=== PATIENT | female | born 1970 | race Caucasian/White ===

== ENCOUNTER → 2019-03-06 | Outpatient (CLI) | payer BC, OTHER ==
--- NOTE | 2019-03-06 18:53 | RADIOLOGY REPORT (SQ) ---
EXAM DESCRIPTION: U/S NON OB PEL W/DOPPLER COMPLETED DATE/TIME: 03/06/2019 5:29 pm REASON FOR STUDY: R10.2 PELVIC AND PERINEAL PAIN R10.2 PELVIC AND PERINEAL PAIN LMP 02/19/2019 COMPARISON: None. TECHNIQUE: Dynamic and static grayscale images acquired of the pelvis via transabdominal approach an d recorded on PACS. Additional selected color Doppler and spectral images recorded. LIMITATIONS: None. FINDINGS: UTERUS: Contour normal. No mass. ENDOMETRIAL STRIPE: No focal or generalized thickening. No masses. CERVIX: 2.7 cm. No nabothian cysts. RIGHT OVARY AND DOPPLER: Normal size. No worrisome masses. Normal arterial vascular flow without evid ence for torsion. LEFT OVARY AND DOPPLER: Normal size. No worrisome masses. Normal arterial vascular flow without evide nce for torsion. FREE FLUID: None noted. OTHER: No other significant finding. MEASUREMENTS: UTERUS: 9.8 x 4.6 x 4.3 cm. ENDOMETRIAL STRIPE: 9 mm. RIGHT OVARY: 3.2 x 1.9 x 1.9 cm. LEFT OVARY: 3.6 x 3.9 x 2.7 cm. IMPRESSION: NORMAL PELVIC ULTRASOUND BY TRANSABDOMINAL TECHNIQUE. TECHNICAL DOCUMENTATION: JOB ID: [id number] [employer]- All Rights Reserved Rev-04/05 Reading location - IP/workstation name: [email or web address]
== END ==
LOC: RAD 16:30
PROVIDERS: ATTEND Nurse Practitioner Family
DX: R10.2 Pelvic and perineal pain (principal)
CPT/HCPCS: 76856; 93976

== ENCOUNTER 2019-07-17 11:13 | Emergency (ER) | payer OTHER ==
[2019-07-17 11:28] LABS: ABSOLUTE EOSINOPHILS # (AUTO) 0.1 10^3/uL (0.0-0.6); ABSOLUTE LYMPHOCYTES (AUTO) 1.2 10^3/uL (0.5-4.7); ABSOLUTE MONOCYTES (AUTO) 0.6 10^3/uL (0.1-1.4); ABSOLUTE NEUT (AUTO) 6.1 10^3/uL (1.7-8.2); BASOPHILS % (AUTO) 0.4 % (0-2); EOSINOPHILS % (AUTO) 0.7 % (0-6); HEMATOCRIT 39.2 % (36.0-47.0); HEMOGLOBIN 13.3 g/dL (12.0-15.5); LYMPHOCYTES % (AUTO) 15.5 % (13-45); MEAN CORPUSCULAR HEMOGLOBIN 27.8 pg (27.0-33.4); MEAN CORPUSCULAR VOLUME 82 fl (80-97); MONOCYTES % (AUTO) 7.5 % (3-13); PLATELET COUNT 142 10^3/uL (150-450); RED BLOOD COUNT 4.79 10^6/uL (3.72-5.28); RED CELL DISTRIBUTION WIDTH 15.1 % (11.5-14.0); SEGMENTED NEUTROPHILS % (AUTO) 75.9 % (42-78); TOTAL CELLS COUNTED % (AUTO) 100 %
[2019-07-17 11:53] LABS: ALBUMIN 3.9 g/dL (3.5-5.0); ALKALINE PHOSPHATASE 58 U/L (38-126); ANION GAP 11 (5-19); ASPARTATE AMINO TRANSFERASE 21 U/L (14-36); BILIRUBIN,DIRECT 0.3 mg/dL (0.0-0.4); BILIRUBIN,TOTAL 0.6 mg/dL (0.2-1.3); BLOOD UREA NITROGEN 14 mg/dL (7-20); CALCIUM 8.9 mg/dL (8.4-10.2); CARBON DIOXIDE 24 mmol/L (22-30); CHLORIDE 102 mmol/L (98-107); CREATINE KINASE 87 U/L (30-135); GLUCOSE 179 mg/dL (75-110); POTASSIUM 3.4 mmol/L (3.6-5.0); TOTAL PROTEIN 6.7 g/dL (6.3-8.2)
--- NOTE | 2019-07-17 12:00 | ER Document Report ---
ED Medical Screen (RME) - General Chief Complaint: Nausea/Vomiting Stated Complaint: DIZZINESS Time Seen by Provider: 07/17/19 11:53 Primary Care Provider: AHMET NAZARIO NP [Primary Care Provider] - Follow up as needed Mode of Arrival: Ambulatory Information source: Patient Notes: Patient presents with 2-day history of nausea vomiting diarrhea. Patient complains of dizziness and episode of diaphoresis today. Patient does complain of low back pain as well. Patient complains of generalized lower abdominal cramping. Patient denies any blood in the stool. Patient does report an episode in which she felt dizzy and ended up having an episode of stool incontinence. I have greeted and performed a rapid initial assessment of this patient. A comprehensive ED assessment and evaluation of the patient, analysis of test results and completion of the medical decision making process will be conducted by additional ED providers. TRAVEL OUTSIDE OF THE [place] IN LAST 30 DAYS: No - Related Data Allergies/Adverse Reactions: No Known Allergies Allergy (Unverified 10/20/15 18:11) Past Medical History - Past Medical History Cardiac Medical History: Reports: Hx Congestive Heart Failure, Hx Hypertension Pulmonary Medical History: Reports: Hx Bronchitis Neurological Medical History: Reports: Hx Migraine GI Medical History: Reports: Hx Gastroesophageal Reflux Disease, Hx Hiatal Hernia Musculoskeltal Medical History: Reports Hx Arthritis, Reports Hx Musculoskeletal Deformity, Reports Hx Musculoskeletal Trauma Psychiatric Medical History: Reports: Hx Anxiety Traumatic Medical History: Reports: Hx Fractures Past Surgical History: Reports: Hx Cholecystectomy, Hx Nose Surgery, Hx Oral Surgery, 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 Physical Exam - Vital signs Vitals: Temp Pulse Resp BP 98.1 F 82 20 118/71 07/17/19 11:24 07/17/19 11:24 07/17/19 11:24 07/17/19 11:24 - Abdominal Tenderness: Tender - Generalized lower abdominal tenderness Course - Vital Signs Vital signs: Temp Pulse Resp BP Pulse Ox 98.1 F 82 20 118/71 07/17/19 11:24 07/17/19 11:24 07/17/19 11:24 07/17/19 11:24 - Laboratory Result Diagrams: 07/17/19 11:20 07/17/19 11:20 Laboratory results interpreted by me: 07/17/19 07/17/19 11:20 11:20 RDW 15.1 H Plt Count 142 L Sodium 136.9 L Potassium 3.4 L Glucose 179 H Doctor's Discharge - Discharge Referrals: AHMET NAZARIO MACH[employer] MEASURER [Primary Care Provider] - Follow up as needed
[2019-07-17 12:14] LABS: APPEARANCE,URINE SLIGHTLY-CLOUDY; BILIRUBIN,URINE NEGATIVE (NEGATIVE); GLUCOSE, URINE NEGATIVE (NEGATIVE); KETONES,URINE NEGATIVE (NEGATIVE); LEUKOCYTE ESTERASE,URINE TRACE (NEGATIVE); NITRITE,URINE NEGATIVE (NEGATIVE); PROTEIN,URINE NEGATIVE (NEGATIVE)
[2019-07-17 12:21] LABS: COLOR,URINE YELLOW
[2019-07-17 12:50] LABS: CREATINE KINASE MB 0.43 ng/mL (<4.55); NT PRO BNP 78 pg/mL (<125)
--- NOTE | 2019-07-17 12:50 | EKG REPORT ---
SEVERITY:- ABNORMAL ECG - SINUS RHYTHM LVH BY VOLTAGE : Confirmed by: Ryan Choudhary MD 17-Jul-2019 12:50:02
[2019-07-17 12:51] LABS: TROPONIN I < 0.012 ng/mL
--- NOTE | 2019-07-17 14:14 | ER Document Report ---
ED General - General Chief Complaint: Nausea/Vomiting Stated Complaint: DIZZINESS Time Seen by Provider: 07/17/19 11:53 Primary Care Provider: AHMET NAZARIO NP [Primary Care Provider] - Follow up as needed Mode of Arrival: Ambulatory TRAVEL OUTSIDE OF THE [place] IN LAST 30 DAYS: No - HPI Notes: Patient is a 49-year-old female that presents to the emergency department for chief complaint of lightheadedness nausea and vomiting. Patient reports 2 days of nausea with decreased oral intake. She states yesterday she did need anything and today she is only had a small toast. She states she is also not had much to drink because of nausea. She has had a few episodes of emesis over the last 2 days. Today she began having diarrhea and reports one loose stool. She denies any black or bloody stools. She denies hematemesis. She does report some chills and urinary frequency but denies dysuria. She denies any associated fevers. Patient has not had chest pain, palpitations or shortness of breath Past Medical History: Hypertension, CHF Past Surgical History: negative Social History: Denies drugs alcohol and tobacco Family History: Reviewed and noncontributory for presenting illness Allergies: Reviewed, see documented allergy list. REVIEW OF SYSTEMS: CONSTITUTIONAL : No fever chills No diaphoresis No recent illness EENT: No vision changes No congestion No sore throat CARDIOVASCULAR: No chest pain No palpitations RESPIRATORY: No shortness of breath No cough No difficulty breathing GASTROINTESTINAL: No abdominal pain nausea vomiting diarrhea GENITOURINARY: No dysuria No hematuria Urinary frequency No difficulty urinating MUSCULOSKELETAL: No back pain No leg pain No arm pain SKIN: No rashes No lesions LYMPHATIC: No swollen, enlarged glands. NEUROLOGICAL: lightheadedness No headache No weakness No paresthesias PSYCHIATRIC: No anxiety No depression PHYSICAL EXAMINATION: Vital signs reviewed, nursing noted reviewed. GENERAL: Well-appearing, well-nourished and in no acute distress. HEAD: Atraumatic, normocephalic. EYES: Eyes appear normal, extraocular movements intact, sclera anicteric, conjunctiva are normal. ENT: nares patent, oropharynx clear without exudates. mildly dry mucous membranes. NECK: Normal range of motion, supple without lymphadenopathy LUNGS: Breath sounds clear to auscultation bilaterally and equal. No wheezes rales or rhonchi. HEART: Regular rate and rhythm without murmurs ABDOMEN: Soft, nontender, normoactive bowel sounds. No rebound, guarding, or rigidity. No masses appreciated. EXTREMITIES: Nontender, good range of motion, no pitting or edema. NEUROLOGICAL: No focal neurological deficits. Moves all extremities spontaneously Motor and sensory grossly intact on exam. PSYCH: Normal mood, normal affect. SKIN: Warm, Dry, normal turgor, no rashes or lesions noted on exposed skin - Related Data Allergies/Adverse Reactions: No Known Allergies Allergy (Unverified 10/20/15 18:11) Past Medical History - General Information source: Patient - Social History Smoking Status: Unknown if Ever Smoked Family History: Arthritis, CVA, Hyperlipidemia, Hypertension Patient has suicidal ideation: No Patient has homicidal ideation: No - Past Medical History Cardiac Medical History: Reports: Hx Congestive Heart Failure, Hx Hypertension Pulmonary Medical History: Reports: Hx Bronchitis Neurological Medical History: Reports: Hx Migraine GI Medical History: Reports: Hx Gastroesophageal Reflux Disease, Hx Hiatal Hernia Musculoskeletal Medical History: Reports Hx Arthritis, Reports Hx Musculoskeletal Deformity, Reports Hx Musculoskeletal Trauma Psychiatric Medical History: Reports: Hx Anxiety Traumatic Medical History: Reports: Hx Fractures Past Surgical History: Reports: Hx Cholecystectomy, Hx Nose Surgery, Hx Oral Surgery, 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 Nursing notes reviewed. Patient was orthostatic positive for EMS. She has received Zofran and IV fluids and reports feeling much better. Lab work in the ER is unremarkable. She has no renal failure or severe electrolyte abnormalities. Patient has no leukocytosis to suggest significant underlying infection. She has been complaining of urinary frequency and generalized malaise. Patient's UA is borderline but with her symptoms she will be started on Keflex. Patient encouraged to increase her oral intake and will be given Zofran to help with the nausea at home. She is able to tolerate oral intake in the emergency room. She will follow closely with her primary care doctor. She will return for new or worsening symptoms. Patient stable for discharge. Laboratory 0807/17/19 07/17/19 11:20 11:20 11:20 WBC 8.0 RBC 4.79 Hgb 13.3 Hct 39.2 MCV 82 MCH 27.8 MCHC 34.0 RDW 15.1 H Plt Count 142 L Lymph % (Auto) 15.5 [place] % (Auto) 7.5 Eos % (Auto) 0.7 Baso % (Auto) 0.4 Absolute Neuts (auto) 6.1 Absolute Lymphs (auto) 1.2 Absolute Monos (auto) 0.6 Absolute Eos (auto) 0.1 Absolute Basos (auto) 0.0 Seg Neutrophils % 75.9 Sodium 136.9 L Potassium 3.4 L Chloride 102 Carbon Dioxide 24 Anion Gap 11 BUN 14 Creatinine 0.89 Est GFR ( Amer) > 60 Est GFR (MDRD) Non-Af > 60 Glucose 179 H Calcium 8.9 Total Bilirubin 0.6 Direct Bilirubin 0.3 Neonat Total Bilirubin Not Reportable Neonat Direct Bilirubin Not Reportable Neonat Indirect Bili Not Reportable AST 21 ALT 16 Alkaline Phosphatase 58 Creatine Kinase 87 CK-MB (CK-2) Troponin I NT-Pro-B Natriuret Pep Total Protein 6.7 Albumin 3.9 Lipase 84.3 Urine Color Urine Appearance Urine pH Ur Specific [place] Urine Protein Urine Glucose (UA) Urine Ketones Urine Blood Urine Nitrite Urine Bilirubin Urine Urobilinogen Ur Leukocyte Esterase Urine WBC (Auto) Urine RBC (Auto) U Hyaline Cast (Auto) Squamous Epi Cells Auto Urine Mucus (Auto) Urine Ascorbic Acid 07/17/19 07/17/19 11:44 11:44 WBC RBC Hgb Hct MCV MCH MCHC RDW Plt Count Lymph % (Auto) [place] % (Auto) Eos % (Auto) Baso % (Auto) Absolute Neuts (auto) Absolute Lymphs (auto) Absolute Monos (auto) Absolute Eos (auto) Absolute Basos (auto) Seg Neutrophils % Sodium Potassium Chloride Carbon Dioxide Anion Gap BUN Creatinine Est GFR ( Amer) Est GFR (MDRD) Non-Af Glucose Calcium Total Bilirubin Direct Bilirubin Neonat Total Bilirubin Neonat Direct Bilirubin Neonat Indirect Bili AST ALT Alkaline Phosphatase Creatine Kinase CK-MB (CK-2) 0.43 Troponin I < 0.012 NT-Pro-B Natriuret Pep 78 Total Protein Albumin Lipase Urine Color YELLOW Urine Appearance SLIGHTLY-CLOUDY Urine pH 5.0 Ur Specific [place] 1.020 Urine Protein NEGATIVE Urine Glucose (UA) NEGATIVE Urine Ketones NEGATIVE Urine Blood NEGATIVE Urine Nitrite NEGATIVE Urine Bilirubin NEGATIVE Urine Urobilinogen 4.0 H Ur Leukocyte Esterase TRACE H Urine WBC (Auto) 14 Urine RBC (Auto) 2 U Hyaline Cast (Auto) 33 Squamous Epi Cells Auto 5 Urine Mucus (Auto) FEW Urine Ascorbic Acid NEGATIVE - Vital Signs Vital signs: Temp Pulse Resp BP Pulse Ox 98.1 F 82 12 118/71 99 07/17/19 11:24 07/17/19 11:24 07/17/19 13:00 07/17/19 11:24 07/17/19 13:00 - Laboratory Result Diagrams: 07/17/19 11:20 07/17/19 11:20 Laboratory results interpreted by me: 07/17/19 07/17/19 07/17/19 11:20 11:20 11:44 RDW 15.1 H Plt Count 142 L Sodium 136.9 L Potassium 3.4 L Glucose 179 H Urine Urobilinogen 4.0 H Ur Leukocyte Esterase TRACE H - EKG Interpretation by Me Additional EKG results interpreted by me: 07/17/19 14:13 Interpreted by myself 11/20/2002:NSR, rate 70, normal axis, no STEMI Discharge - Discharge Clinical Impression: Near syncope, Dehydration, Nausea vomiting and diarrhea, Acute UTI Condition: Stable Disposition: HOME, SELF-CARE Instructions: Cephalexin ([facility]), Urinary Tract Infection ([facility]), Gastroenteritis (adult) ([facility]) Additional Instructions: Please return to the emergency department if you have any worsening, or concern of your symptoms. Please return to the emergency department if you develop chest pain, difficulty breathing, severe abdominal pain, or ongoing vomiting. Please follow-up with your primary care physician in 2-3 days and any other recommended physicians. If prescribed, take all medications as directed. If you have any questions or concerns do not hesitate to return the emergency department for evaluation. Take Tylenol or ibuprofen at home as needed for fever or pains Prescriptions: Cephalexin Monohydrate [Keflex 500 mg Capsule] 500 mg PO BID 5 Days capsule Ondansetron [Zofran Odt 4 mg Tablet] 1 tab PO Q4H PRN #15 tab.rapdis PRN Reason: For Nausea/Vomiting Referrals: AHMET NAZARIO NP [Primary Care Provider] - Follow up in 3-5 days
[2019-07-17] MEDS ORDERED: CEPHALEXIN 500 MG CAPSULE PO ONE (14:33)
[2019-07-17 14:42] VITALS: BP 109/66
== END 2019-07-17 14:50 | disposition home or self-care (01) ==
LOC: ER 11:13
DX: R55 Syncope and collapse (principal); E86.0 Dehydration; R11.2 Nausea with vomiting, unspecified; R19.7 Diarrhea, unspecified; R42 Dizziness and giddiness; N39.0 Urinary tract infection, site not specified; I11.0 Hypertensive heart disease with heart failure; I50.9 Heart failure, unspecified; Z90.49 Acquired absence of other specified parts of digestive tract
CPT/HCPCS: 36415; 80053; 81001; 82550; 82553; 83690; 83880; 84484; 85025; 93005; 93010; 99284